=== PATIENT | male | born 1945 | race Caucasian/White ===

== ENCOUNTER 2018-04-16 09:37 | Inpatient (IN) | payer MEDICARE, BC ==
[~2018-04-16] VITALS: Ht 177.8 cm; Wt 104.5 kg
[2018-04-16] VITALS (15 sets, daily range): BP systolic 84–213; BP diastolic 33–130
[2018-04-16] MEDS ORDERED: diphenhydrAMINE 25mg capsule PO PRN (10:05)
[2018-04-16] MEDS ORDERED: LIDOcaine 1% w/EPI 1:200,000 10 ML, BUPIVAcaine 2.5mg/ml /PF 25 MG SQ ONE ×2 (10:05)
[2018-04-16] MEDS ORDERED: LORazepam 0.5 MG tablet PO PRN (10:05)
[2018-04-16] MEDS: normal saline 1000ml 1,000 ML IV SCH ×2 (10:05→20:05)
[2018-04-16] MEDS ORDERED: NITR0.4T51 SL (10:33)
[2018-04-16] MEDS ORDERED: LEVO50TA PO (10:33)
[2018-04-16] MEDS ORDERED: ENOX40SY7 SQ (10:33)
[2018-04-16] MEDS ORDERED: RIVA20TA PO (10:33)
[2018-04-16] MEDS ORDERED: ATOR10TA PO (10:33)
[2018-04-16] MEDS ORDERED: LISI10TA4 PO (10:33)
[2018-04-16] MEDS ORDERED: CARSR60C PO (10:33)
[2018-04-16] MEDS ORDERED: LIDOcaine/PRILOcaine 5gm cream TP ONE (11:10)
[2018-04-16] MEDS ORDERED: fentaNYL/PF 50MCG/1 ML 2ML syringe ONE (11:56)
[2018-04-16] MEDS ORDERED: LIDOcaine 1% 30ml preserv. free vial ONE (11:56)
[2018-04-16] MEDS ORDERED: iohexol 350MG/ML 100ml bottle IV ONE ×2 (11:56→13:00)
[2018-04-16] MEDS ORDERED: midazolam 2 mg/2 ml injection ONE (11:56)
[2018-04-16] MEDS ORDERED: verapamil 2.5 mg/ml inj IV ONE (12:27)
[2018-04-16] MEDS ORDERED: nitroGLYCERIN-Tridil 50MG/D5W 250 ML IV ONE (12:27)
[2018-04-16] MEDS ORDERED: heparin 1,000unit/ml 10ml vial 10 ML ONE (12:28)
[2018-04-16] MEDS ORDERED: proCHLORperazine 10 MG/2 ml inj IV PRN (13:50)
[2018-04-16] MEDS ORDERED: HYDROcodone/acetaminophen 5mg/325mg tablet PO PRN (13:50)
[2018-04-16] MEDS ORDERED: OXAZEpam 15mg capsule PO PRN (13:50)
[2018-04-16] MEDS ORDERED: HYDROcodone/acetaminophen 10/325mg tab PO PRN (13:50)
[2018-04-16] MEDS ORDERED: ondansetron/PF 4mg/2ml inj IV PRN (13:50)
[2018-04-16] MEDS ORDERED: MESSAGE TO NURSING PO ONE ×4 (18:00)
[2018-04-16] MEDS ORDERED: dextrose 50%-water 50ml dispensing syringe IV PRN ×3 (18:00→18:10)
[2018-04-16] MEDS ORDERED: insulin Lispro (HumaLOG) vial - multi-dose SQ SCH ×2 (18:00→18:10)
[2018-04-16] MEDS ORDERED: nitroGLYCERIN 0.4mg SUBLingual tab SL PRN ×2 (18:05→20:05)
[2018-04-16] MEDS ORDERED: glucagon, human recombinant 1mg kit SUBCUT PRN (18:10)
[2018-04-16] MEDS ORDERED: MESSAGE TO PHARMACY PO ONE (18:10)
[2018-04-16] MEDS ORDERED: dextrose ORAL solution 15 GM/59 ML bottle PO PRN ×2 (18:10)
[2018-04-16 18:48] LABS: HEMATOCRIT 43.6 % (42.0-52.0); HEMOGLOBIN 15.2 g/dl (14.0-17.9); MEAN CORPUSCULAR HEMOGLOBIN 30.6 PG (27.0-31.0); MEAN CORPUSCULAR HGB CONC 34.8 % (33.0-36.5); MEAN CORPUSCULAR VOLUME 87.8 FL (78-98); MEAN PLATELET VOLUME 9.3 FL (7.4-10.4); PLATELET COUNT 149 X10'3 (140-440); RED BLOOD COUNT 4.97 X10'6 (4.70-6.10); RED CELL DISTRIBUTION WIDTH 13.4 % (11.5-14.5); WHITE BLOOD COUNT 6.8 X10'3 (4.5-11.0)
[2018-04-16 19:03] LABS: ALBUMIN 3.3 G/DL (3.4-5.0); ANION GAP 9 (8-16); BLOOD UREA NITROGEN 17 MG/DL (7-18); BUN/CREATININE RATIO 17.9 (5.4-32.0); CALCIUM 8.4 MG/DL (8.5-10.1); CHLORIDE 106 MMOL/L (99-107); CREATININE 0.95 MG/DL (0.60-1.10); GLUCOSE 131 MG/DL (70-104); POTASSIUM 3.9 MMOL/L (3.5-5.1); SODIUM 143 MMOL/L (135-145); TOTAL CARBON DIOXIDE 27.7 MMOL/L (24-32); eGFR 78 ML/MIN
[2018-04-16 19:06] LABS: HEMOGLOBIN A1C 4.7 % (4.5-6.2); INR 1.3 INR; PARTIAL THROMBOPLASTIN TIME 28 SECONDS (22-32); PROTHROMBIN TIME 13.4 SECONDS (9.0-12.0)
[2018-04-16] MEDS: nitroGLYCERIN 0.4mg SUBLingual tab SL PRN ×3 (19:22→19:32)
[2018-04-16] MEDS: mupirocin 2% nasal ointment 1gm UD NS SCH (20:00)
[2018-04-16] MEDS: diltiazem CD 180mg cap (once-daily) PO SCH (20:32)
[2018-04-16] MEDS: lisinopril 20mg tablet PO SCH (20:33)
[2018-04-16] MEDS ORDERED: insulin glargine (Lantus) pen - multi-dose SQ SCH (21:00)
[2018-04-17 03:00] VITALS: BP 130/74
[2018-04-17 06:00] VITALS: BP 118/79
[2018-04-17] MEDS: mupirocin 2% nasal ointment 1gm UD NS SCH (06:30)
[2018-04-17] MEDS ORDERED: levoTHYROXINE 25mcg tablet PO SCH (07:00)
[2018-04-17 07:27] LABS: ALANINE AMINOTRANSFERASE 42 U/L (12-78); ALBUMIN/GLOBULIN RATIO 0.9 (1.1-1.5); ALKALINE PHOSPHATASE 77 IU/L (46-116); ANION GAP 8 (8-16); ASPARTATE AMINO TRANSFERASE 35 U/L (10-37); BILIRUBIN,TOTAL 0.7 MG/DL (0.1-1.0); BLOOD UREA NITROGEN 16 MG/DL (7-18); BUN/CREATININE RATIO 18.4 (5.4-32.0); CHLORIDE 106 MMOL/L (99-107); CHOL/HDL RATIO 3.7 (0.00-4.99); CHOLESTEROL 129 MG/DL (0-200); CREATININE 0.87 MG/DL (0.60-1.10); GLUCOSE 126 MG/DL (70-104); HDL CHOLESTEROL 35 MG/DL (35-60); LDL CHOLESTEROL 83 MG/DL (50-100); POTASSIUM 3.8 MMOL/L (3.5-5.1); SODIUM 141 MMOL/L (135-145); TOTAL CARBON DIOXIDE 27.3 MMOL/L (24-32); TOTAL PROTEIN 6.3 G/DL (6.4-8.2); TRIGLYCERIDES 95 MG/DL (20-135); eGFR 86 ML/MIN
[2018-04-17] MEDS ORDERED: rivaroxaban 20mg tablet PO SCH (07:30)
[2018-04-17] MEDS ORDERED: atorvastatin 10mg tablet PO SCH ×2 (08:00)
[2018-04-17] MEDS ORDERED: lisinopril 20mg tablet PO SCH ×2 (08:00)
[2018-04-17] MEDS ORDERED: diltiazem CD 180mg cap (once-daily) PO SCH ×2 (08:00)
[2018-04-17] MEDS: diltiazem CD 180mg cap (once-daily) PO SCH (09:18)
[2018-04-17] MEDS: lisinopril 20mg tablet PO SCH (09:19)
[2018-04-17] MEDS ORDERED: MESSAGE TO NURSING PO ONE (10:00)
[2018-04-17 10:06] LABS: ABG OXYGEN SATURATION 92.8 % (95-98); ABG PCO2 (T) 37.9 mmHg (35.0-48.0); ABG PH (T) 7.437 (7.350-7.450); ABG PO2 (T) 64.7 mmHg (83-108); ALLEN'S TEST Positive; FCOHb 1.5 % (0.5-1.5); FO2Hb 91.4 % (94-100); TOTAL HEMOGLOBIN 14.8 G/dl (14.0-18.0)
[2018-04-17 11:00] VITALS: BP 126/79
[2018-04-17] MEDS: levoTHYROXINE 25mcg tablet PO SCH (12:07)
[2018-04-17 15:00] VITALS: BP 118/72
[2018-04-17] MEDS: normal saline 1000ml 1,000 ML IV SCH (15:31)
[2018-04-17 19:00] VITALS: BP 126/72
[2018-04-17 23:00] VITALS: BP 128/81
[2018-04-18] VITALS (18 sets, daily range): BP systolic 108–159; BP diastolic 60–80
[2018-04-18 05:24] LABS: BASOPHILS % (AUTO) 0.6 % (0-1); EOSINOPHILS # (AUTO) 0.1 X10'3 (0-0.9); HEMATOCRIT 39.6 % (42.0-52.0); HEMOGLOBIN 13.5 g/dl (14.0-17.9); LYMPHOCYTES # (AUTO) 1.9 X10'3 (1.1-4.8); LYMPHOCYTES % (AUTO) 27.8 % (21-51); MEAN CORPUSCULAR HEMOGLOBIN 30.5 PG (27.0-31.0); MEAN CORPUSCULAR HGB CONC 34.2 % (33.0-36.5); MEAN CORPUSCULAR VOLUME 89.2 FL (78-98); MEAN PLATELET VOLUME 9.6 FL (7.4-10.4); MONOCYTES # (AUTO) 0.4 X10'3 (0-0.9); MONOCYTES % (AUTO) 6.7 % (2-12); NEUTROPHILS # (AUTO) 4.2 X10'3 (1.8-7.7); NEUTROPHILS % (AUTO) 62.9 % (42-75); PLATELET COUNT 133 X10'3 (140-440); RED BLOOD COUNT 4.44 X10'6 (4.70-6.10); RED CELL DISTRIBUTION WIDTH 13.6 % (11.5-14.5); WHITE BLOOD COUNT 6.7 X10'3 (4.5-11.0)
[2018-04-18] MEDS ORDERED: vancomycin/NS 1 GM ADD-VANTAGE 250 ML IV ONE (05:30)
[2018-04-18] MEDS ORDERED: cefazolin/dext.iso 2gm/100ml 100 ML IV ONE (05:30)
[2018-04-18 05:36] LABS: ALBUMIN 2.9 G/DL (3.4-5.0); ANION GAP 7 (8-16); BLOOD UREA NITROGEN 16 MG/DL (7-18); BUN/CREATININE RATIO 15.8 (5.4-32.0); CALCIUM 7.9 MG/DL (8.5-10.1); CHLORIDE 107 MMOL/L (99-107); CREATININE 1.01 MG/DL (0.60-1.10); GLUCOSE 100 MG/DL (70-104); POTASSIUM 3.8 MMOL/L (3.5-5.1); SODIUM 142 MMOL/L (135-145); TOTAL CARBON DIOXIDE 28.4 MMOL/L (24-32); eGFR 73 ML/MIN
[2018-04-18 05:39] LABS: INR 1.4 INR; PROTHROMBIN TIME 13.7 SECONDS (9.0-12.0)
[2018-04-18] MEDS ORDERED: famotidine 20mg tablet PO ONE (06:00)
[2018-04-18] MEDS ORDERED: LORazepam 2 mg/ml vial IV ONE (06:00)
[2018-04-18] MEDS ORDERED: sevoflurane 250ml liquid IH ONE (06:37)
[2018-04-18] MEDS ORDERED: aminocaproic acid 250 MG/1 ML inj. ONE (06:37)
[2018-04-18] MEDS ORDERED: nitroGLYCERIN in D5W 50mg/250ml (Tridil) infusion IV ONE (06:37)
[2018-04-18] MEDS ORDERED: DOPamine/D5W 400mg/250ml bag IV ONE (06:37)
[2018-04-18] MEDS ORDERED: amiodarone 50MG/ML inj IV ONE (06:37)
[2018-04-18] MEDS ORDERED: MIDAZolam 1mg/ml 10ml vial ONE (06:41)
[2018-04-18] MEDS ORDERED: SUFENTANIL CITRATE 50 MCG/ML 2ml ampule IV ONE (06:41)
[2018-04-18] MEDS ORDERED: propofol inj 20 ML IV ONE ×2 (06:50→09:54)
[2018-04-18 07:36] LABS: ABG BASE EXCESS 0.1 mmol/L (-2.0-3.0); ABG HCO3 26.2 mmol/L (22.0-26.0); ABG OXYGEN SATURATION 98.3 % (95-98); ABG PCO2 48.6 mmHg (35.0-45.0); ABG PO2 136.6 mmHg (60.0-100.0); CL (ABG) 107 mmol/L (99-107); FCOHb 1.3 % (0.5-1.5); FMetHb 0.1 % (0.3-1.12); FO2Hb 96.9 % (94-100); GLUCOSE (ABG) 123 mg/dl (70-105); IONIZED CA (ABG) 1.15 mmol/L (1.03-1.32); K (ABG) 3.9 mmol/L (3.3-5.1); NA (ABG) 137 mmol/L (135-145); TOTAL HEMOGLOBIN 13.7 G/dl (14.0-18.0)
[2018-04-18] MEDS ORDERED: papaverine 30 mg/ml 2ml inj. IA ONE (08:08)
[2018-04-18 08:20] LABS: ABG BASE EXCESS VENOUS 1.9 mmol/L; ABG HCO3 VENOUS 29.2 mmol/L; ABG PCO2 VENOUS 57.5 mmHg; ABG PO2 VENOUS 35.2 mmHg; CL (ABG) 107 mmol/L (99-107); FCOHb VENOUS 1.5 %; FHHb VENOUS 33.3 %; FMetHb VENOUS 0.2 %; GLUCOSE (ABG) 130 mg/dl (70-105); IONIZED CA (ABG) 1.12 mmol/L (1.03-1.32); K (ABG) 3.9 mmol/L (3.3-5.1); NA (ABG) 136 mmol/L (135-145); TOTAL HEMOGLOBIN 13.7 G/dl (14.0-18.0)
[2018-04-18] MEDS ORDERED: insulin Lispro (HumaLOG) vial - multi-dose SQ SCH (09:00)
[2018-04-18] MEDS ORDERED: albumin (Human) 5% 250ml 250 ML IV ONE (09:54)
[2018-04-18] MEDS ORDERED: rocuronium 10mg/ml inj IV ONE ×3 (09:55)
[2018-04-18 09:56] LABS: ABG BASE EXCESS VENOUS 0.7 mmol/L; ABG HCO3 VENOUS 27.5 mmol/L; ABG PCO2 VENOUS 53.1 mmHg; ABG PO2 VENOUS 39.2 mmHg; CL (ABG) 111 mmol/L (99-107); FCOHb VENOUS 1.4 %; FHHb VENOUS 27.7 %; FMetHb VENOUS 0.3 %; FO2Hb VENOUS 70.6 %; GLUCOSE (ABG) 140 mg/dl (70-105); IONIZED CA (ABG) 1.14 mmol/L (1.03-1.32); K (ABG) 3.8 mmol/L (3.3-5.1); NA (ABG) 136 mmol/L (135-145); TOTAL HEMOGLOBIN 13.2 G/dl (14.0-18.0)
[2018-04-18 10:26] LABS: ACTIVATED CLOTTING TIME 131 SEC (101-148)
[2018-04-18 10:26] LABS: ACT @ 1.70 U 292 SEC (193-297); ACT @ 2.84 U 394 SEC (260-420); BASELINE ACT 154 SEC (101-148)
[2018-04-18] MEDS ORDERED: niCARDipine-NS 40mg/200ml IVPB 200 ML IV PRN (10:47)
[2018-04-18] MEDS ORDERED: DOPamine 400mg/D5W 250ml 250 ML IV PRN (10:47)
[2018-04-18] MEDS ORDERED: nitroGLYCERIN-Tridil 50MG/D5W 250 ML IV PRN (10:47)
[2018-04-18] MEDS ORDERED: Neutra Phos packet PO PRN (10:50)
[2018-04-18] MEDS ORDERED: magnesium 4gm in 100ml NS 100 ML IV PRN (10:50)
[2018-04-18] MEDS ORDERED: metoclopramide 5 mg/ml inj IV PRN (10:50)
[2018-04-18] MEDS ORDERED: sodium phosphate inj. 30 MMOL in dextrose 5%-water 250 ML IV PRN (10:50)
[2018-04-18] MEDS ORDERED: potassium Cl 20mEq/100mL bag 100 ML IV PRN (10:50)
[2018-04-18] MEDS ORDERED: dextrose 50%-water 50ml dispensing syringe IV PRN (10:50)
[2018-04-18] MEDS ORDERED: ondansetron/PF 4mg/2ml inj IV PRN (10:50)
[2018-04-18] MEDS ORDERED: acetaminophen 325mg tablet PO PRN (10:50)
[2018-04-18] MEDS ORDERED: pantoprazole 40 MG vial IV ONE (10:50)
[2018-04-18] MEDS ORDERED: insulin regular, human inj. 100 UNITS in normal saline 100ml IV soln 100 ML IV SCH ×2 (10:50)
[2018-04-18] MEDS ORDERED: sodium phosphate inj. 15 MMOL in dextrose 5%-water 150 ML IV PRN (10:50)
[2018-04-18] MEDS ORDERED: normal saline 250ml IV soln 250 ML IV PRN (10:50)
[2018-04-18] MEDS ORDERED: magnesium hydroxide 30ml (MOM) UD suspension PO PRN (10:50)
[2018-04-18 11:11] LABS: BASOPHILS % (AUTO) 0.3 % (0-1); EOSINOPHILS # (AUTO) 0.2 X10'3 (0-0.9); EOSINOPHILS % (AUTO) 2.3 % (0-6); HEMATOCRIT 35.4 % (42.0-52.0); HEMOGLOBIN 12.2 g/dl (14.0-17.9); LYMPHOCYTES # (AUTO) 1.1 X10'3 (1.1-4.8); LYMPHOCYTES % (AUTO) 12.5 % (21-51); MEAN CORPUSCULAR HEMOGLOBIN 30.4 PG (27.0-31.0); MEAN CORPUSCULAR HGB CONC 34.5 % (33.0-36.5); MEAN CORPUSCULAR VOLUME 88.3 FL (78-98); MEAN PLATELET VOLUME 8.4 FL (7.4-10.4); MONOCYTES # (AUTO) 0.5 X10'3 (0-0.9); MONOCYTES % (AUTO) 5.2 % (2-12); NEUTROPHILS # (AUTO) 7.3 X10'3 (1.8-7.7); NEUTROPHILS % (AUTO) 79.7 % (42-75); PLATELET COUNT 124 X10'3 (140-440); RED BLOOD COUNT 4.01 X10'6 (4.70-6.10); RED CELL DISTRIBUTION WIDTH 13.6 % (11.5-14.5); WHITE BLOOD COUNT 9.1 X10'3 (4.5-11.0)
[2018-04-18] MEDS: albumin (Human) 5% 250ml 250 ML IV PRN ×2 (11:21→16:51)
[2018-04-18] MEDS: sodium chloride 0.45% 1,000 ML IV SCH (11:23)
[2018-04-18 11:26] LABS: ABG HCO3 22.6 mmol/L (22.0-26.0); ABG OXYGEN SATURATION 94.3 % (95-98); ABG PCO2 (T) 38.6 mmHg (35.0-48.0); ABG PH (T) 7.376 (7.350-7.450); ABG PO2 (T) 66.8 mmHg (83-108); FCOHb 0.6 % (0.5-1.5); FLOW 35 L/min; FMetHb 0.2 % (0.3-1.12); FO2Hb 93.5 % (94-100); MINUTE VOLUME 7 L/min; PEEP 5 cm H2O; RESPIRATORY RATE 12 b/min; RESPIRATORY RATE (OBSERVED) 12 b/min; TIDAL VOLUME 550 mL
[2018-04-18 11:27] LABS: ALANINE AMINOTRANSFERASE 81 U/L (12-78); ALBUMIN 2.6 G/DL (3.4-5.0); ALKALINE PHOSPHATASE 66 IU/L (46-116); ANION GAP 8 (8-16); ASPARTATE AMINO TRANSFERASE 52 U/L (10-37); BILIRUBIN,TOTAL 0.8 MG/DL (0.1-1.0); BLOOD UREA NITROGEN 14 MG/DL (7-18); BUN/CREATININE RATIO 15.1 (5.4-32.0); CALCIUM 7.7 MG/DL (8.5-10.1); CHLORIDE 109 MMOL/L (99-107); CREATININE 0.93 MG/DL (0.60-1.10); GLUCOSE 133 MG/DL (70-104); MAGNESIUM 1.7 MG/DL (1.5-2.4); PHOSPHORUS 3.6 MG/DL (2.3-4.5); POTASSIUM 3.7 MMOL/L (3.5-5.1); SODIUM 143 MMOL/L (135-145); TOTAL CARBON DIOXIDE 26.1 MMOL/L (24-32); TOTAL PROTEIN 5.2 G/DL (6.4-8.2); eGFR 80 ML/MIN
[2018-04-18] MEDS: morphine 4 MG/ML inj SYRINge IV PRN ×4 (11:31→21:38)
[2018-04-18] MEDS: potassium Cl 20mEq/100mL bag 100 ML IV PRN ×4 (11:38→17:47)
[2018-04-18 11:41] LABS: INR 1.6 INR; PARTIAL THROMBOPLASTIN TIME 30 SECONDS (22-32); PROTHROMBIN TIME 15.7 SECONDS (9.0-12.0)
[2018-04-18] MEDS: NORMAL SALINE IV SCH ×2 (12:10)
[2018-04-18] MEDS: HUMAN IV SCH ×2 (12:10)
[2018-04-18] MEDS: INSULIN REGULAR IV SCH ×2 (12:10)
[2018-04-18] MEDS: levoTHYROXINE 25mcg tablet PO SCH (12:12)
[2018-04-18] MEDS: insulin Lispro (HumaLOG) vial - multi-dose SQ SCH ×2 (13:00→18:00)
[2018-04-18 15:01] LABS: ABG BASE EXCESS -4.3 mmol/L (-2.0-3.0); ABG HCO3 20.2 mmol/L (22.0-26.0); ABG OXYGEN SATURATION 94.8 % (95-98); ABG PCO2 (T) 35.2 mmHg (35.0-48.0); ABG PH (T) 7.376 (7.350-7.450); ABG PO2 (T) 77.8 mmHg (83-108); FCOHb 0.6 % (0.5-1.5); FMetHb 0.1 % (0.3-1.12); FO2Hb 94.1 % (94-100); MINUTE VOLUME 9 L/min; PEEP 5 cm H2O; RESPIRATORY RATE (OBSERVED) 12 b/min
[2018-04-18] MEDS: ceFAZolin 1GM/D5W- ADD-VANTAGE 50 ML IV SCH (16:40)
[2018-04-18 17:07] LABS: BASOPHILS % (AUTO) 0 % (0-1); EOSINOPHILS % (AUTO) 0 % (0-6); HEMATOCRIT 33.4 % (42.0-52.0); HEMOGLOBIN 11.5 g/dl (14.0-17.9); LYMPHOCYTES # (AUTO) 0.3 X10'3 (1.1-4.8); MEAN CORPUSCULAR HEMOGLOBIN 30.5 PG (27.0-31.0); MEAN CORPUSCULAR HGB CONC 34.4 % (33.0-36.5); MEAN CORPUSCULAR VOLUME 88.5 FL (78-98); MEAN PLATELET VOLUME 8.7 FL (7.4-10.4); MONOCYTES # (AUTO) 0.5 X10'3 (0-0.9); MONOCYTES % (AUTO) 3.3 % (2-12); NEUTROPHILS % (AUTO) 94.7 % (42-75); PLATELET COUNT 134 X10'3 (140-440); RED BLOOD COUNT 3.78 X10'6 (4.70-6.10); RED CELL DISTRIBUTION WIDTH 13.4 % (11.5-14.5); WHITE BLOOD COUNT 13.8 X10'3 (4.5-11.0)
[2018-04-18 17:25] LABS: ALBUMIN 2.9 G/DL (3.4-5.0); ANION GAP 8 (8-16); BLOOD UREA NITROGEN 13 MG/DL (7-18); CALCIUM 7.7 MG/DL (8.5-10.1); CHLORIDE 109 MMOL/L (99-107); CREATININE 0.93 MG/DL (0.60-1.10); GLUCOSE 145 MG/DL (70-104); MAGNESIUM 1.6 MG/DL (1.5-2.4); PHOSPHORUS 3.6 MG/DL (2.3-4.5); POTASSIUM 4.2 MMOL/L (3.5-5.1); SODIUM 143 MMOL/L (135-145); eGFR 80 ML/MIN
[2018-04-18] MEDS: docusate sod 100mg capsule PO SCH (20:00)
[2018-04-18] MEDS: vancomycin/NS 1 GM ADD-VANTAGE 250 ML IV SCH (20:04)
[2018-04-18] MEDS: mupirocin 2% nasal ointment 1gm UD NS SCH (20:04)
[2018-04-18] MEDS: magnesium 1gm/100ml D5W IVPB 100 ML IV PRN ×2 (20:22→21:41)
[2018-04-19] VITALS (24 sets, daily range): BP systolic 93–154; BP diastolic 48–76
[2018-04-19] MEDS: ceFAZolin 1GM/D5W- ADD-VANTAGE 50 ML IV SCH ×3 (00:21→15:54)
[2018-04-19] MEDS: morphine 4 MG/ML inj SYRINge IV PRN ×4 (01:00→07:17)
[2018-04-19 03:26] LABS: BASOPHILS % (AUTO) 0 % (0-1); EOSINOPHILS # (AUTO) 0.2 X10'3 (0-0.9); EOSINOPHILS % (AUTO) 1.6 % (0-6); HEMATOCRIT 30.9 % (42.0-52.0); HEMOGLOBIN 10.6 g/dl (14.0-17.9); LYMPHOCYTES # (AUTO) 0.7 X10'3 (1.1-4.8); LYMPHOCYTES % (AUTO) 6.1 % (21-51); MEAN CORPUSCULAR HEMOGLOBIN 30.3 PG (27.0-31.0); MEAN CORPUSCULAR HGB CONC 34.2 % (33.0-36.5); MEAN CORPUSCULAR VOLUME 88.6 FL (78-98); MEAN PLATELET VOLUME 9.5 FL (7.4-10.4); MONOCYTES # (AUTO) 0.6 X10'3 (0-0.9); MONOCYTES % (AUTO) 5.7 % (2-12); NEUTROPHILS # (AUTO) 9.3 X10'3 (1.8-7.7); NEUTROPHILS % (AUTO) 86.6 % (42-75); PLATELET COUNT 141 X10'3 (140-440); RED BLOOD COUNT 3.49 X10'6 (4.70-6.10); RED CELL DISTRIBUTION WIDTH 13.1 % (11.5-14.5); WHITE BLOOD COUNT 10.8 X10'3 (4.5-11.0)
[2018-04-19 03:43] LABS: INR 1.5 INR; PARTIAL THROMBOPLASTIN TIME 28 SECONDS (22-32); PROTHROMBIN TIME 14.7 SECONDS (9.0-12.0)
[2018-04-19 04:28] LABS: ALANINE AMINOTRANSFERASE 67 U/L (12-78); ALBUMIN 2.8 G/DL (3.4-5.0); ALBUMIN/GLOBULIN RATIO 1.1 (1.1-1.5); ALKALINE PHOSPHATASE 57 IU/L (46-116); ANION GAP 12 (8-16); ASPARTATE AMINO TRANSFERASE 39 U/L (10-37); BILIRUBIN,TOTAL 0.8 MG/DL (0.1-1.0); BLOOD UREA NITROGEN 15 MG/DL (7-18); BUN/CREATININE RATIO 15.8 (5.4-32.0); CALCIUM 7.4 MG/DL (8.5-10.1); CHLORIDE 107 MMOL/L (99-107); CREATININE 0.95 MG/DL (0.60-1.10); GLUCOSE 127 MG/DL (70-104); MAGNESIUM 2.7 MG/DL (1.5-2.4); PHOSPHORUS 3.6 MG/DL (2.3-4.5); POTASSIUM 4.1 MMOL/L (3.5-5.1); SODIUM 143 MMOL/L (135-145); TOTAL CARBON DIOXIDE 24.1 MMOL/L (24-32); TOTAL PROTEIN 5.3 G/DL (6.4-8.2); eGFR 78 ML/MIN
[2018-04-19] MEDS: levoTHYROXINE 25mcg tablet PO SCH (07:20)
[2018-04-19] MEDS: docusate sod 100mg capsule PO SCH ×2 (07:20→19:30)
[2018-04-19] MEDS: aspirin 325mg tablet, delayed-release (Ecotrin) PO SCH (07:21)
[2018-04-19] MEDS: atorvastatin 10mg tablet PO SCH (07:21)
[2018-04-19] MEDS: mupirocin 2% nasal ointment 1gm UD NS SCH ×2 (07:21→19:27)
[2018-04-19] MEDS ORDERED: metoprolol tartrate 12.5mg (1/2 tablet) PO SCH (08:00)
[2018-04-19] MEDS: vancomycin/NS 1 GM ADD-VANTAGE 250 ML IV SCH ×2 (08:03→19:35)
[2018-04-19] MEDS: insulin Lispro (HumaLOG) vial - multi-dose SQ SCH (09:00)
[2018-04-19] MEDS: lisinopril 5mg tablet PO SCH (09:52)
[2018-04-19] MEDS: ketorolac tromethamine 15mg/ml inj. IV SCH ×3 (09:52→22:37)
[2018-04-19] MEDS: HUMAN IV SCH ×2 (10:09)
[2018-04-19] MEDS: INSULIN REGULAR IV SCH ×2 (10:09)
[2018-04-19] MEDS: NORMAL SALINE IV SCH ×2 (10:09)
[2018-04-19] MEDS: metoprolol tartrate 12.5mg (1/2 tablet) PO SCH ×2 (10:10→19:29)
[2018-04-19] MEDS ORDERED: glucagon, human recombinant 1mg kit SUBCUT PRN (10:15)
[2018-04-19] MEDS ORDERED: dextrose 50%-water 50ml dispensing syringe IV PRN ×2 (10:15)
[2018-04-19] MEDS ORDERED: MESSAGE TO PHARMACY PO ONE (10:15)
[2018-04-19] MEDS ORDERED: dextrose ORAL solution 15 GM/59 ML bottle PO PRN ×2 (10:15)
[2018-04-19] MEDS ORDERED: insulin Lispro (HumaLOG) vial - multi-dose SQ SCH (10:15)
[2018-04-19] MEDS: potassium Cl 20mEq/100mL bag 100 ML IV PRN (11:02)
[2018-04-19] MEDS: HYDROcodone/acetaminophen 10/325mg tab PO PRN ×2 (12:42→19:27)
[2018-04-19] MEDS ORDERED: ketorolac tromethamine 15mg/ml inj. IV SCH (14:00)
[2018-04-19] MEDS: lactobacillus rhamnosus 10,000 MMU CELLS/CAPSULE PO SCH (19:30)
[2018-04-19] MEDS: insulin glargine (Lantus) pen - multi-dose SQ SCH (21:00)
[2018-04-20] VITALS (19 sets, daily range): BP systolic 100–144; BP diastolic 49–77
[2018-04-20] MEDS: ceFAZolin 1GM/D5W- ADD-VANTAGE 50 ML IV SCH
[2018-04-20] MEDS: ketorolac tromethamine 15mg/ml inj. IV SCH (02:00)
[2018-04-20 03:08] LABS: BASOPHILS % (AUTO) 0.2 % (0-1); EOSINOPHILS # (AUTO) 0.1 X10'3 (0-0.9); EOSINOPHILS % (AUTO) 0.7 % (0-6); HEMOGLOBIN 10.3 g/dl (14.0-17.9); LYMPHOCYTES # (AUTO) 1.3 X10'3 (1.1-4.8); MEAN CORPUSCULAR HEMOGLOBIN 30.6 PG (27.0-31.0); MEAN CORPUSCULAR HGB CONC 34.4 % (33.0-36.5); MEAN PLATELET VOLUME 9.6 FL (7.4-10.4); MONOCYTES # (AUTO) 0.8 X10'3 (0-0.9); MONOCYTES % (AUTO) 7.6 % (2-12); NEUTROPHILS # (AUTO) 7.8 X10'3 (1.8-7.7); NEUTROPHILS % (AUTO) 78.5 % (42-75); PLATELET COUNT 113 X10'3 (140-440); RED BLOOD COUNT 3.37 X10'6 (4.70-6.10); RED CELL DISTRIBUTION WIDTH 13.5 % (11.5-14.5); WHITE BLOOD COUNT 9.9 X10'3 (4.5-11.0)
[2018-04-20 03:09] LABS: ALBUMIN 2.6 G/DL (3.4-5.0); ANION GAP 8 (8-16); BLOOD UREA NITROGEN 22 MG/DL (7-18); BUN/CREATININE RATIO 21.4 (5.4-32.0); CALCIUM 7.7 MG/DL (8.5-10.1); CHLORIDE 106 MMOL/L (99-107); CREATININE 1.03 MG/DL (0.60-1.10); GLUCOSE 106 MG/DL (70-104); MAGNESIUM 2.3 MG/DL (1.5-2.4); PHOSPHORUS 2.9 MG/DL (2.3-4.5); POTASSIUM 4.2 MMOL/L (3.5-5.1); SODIUM 141 MMOL/L (135-145); eGFR 71 ML/MIN
[2018-04-20] MEDS: HYDROcodone/acetaminophen 10/325mg tab PO PRN ×4 (03:49→17:11)
[2018-04-20] MEDS ORDERED: ketorolac trometh. 30mg/ml inj. IV ONE (05:10)
[2018-04-20] MEDS: morphine 4 MG/ML inj SYRINge IV PRN (07:46)
[2018-04-20] MEDS: metoprolol tartrate 12.5mg (1/2 tablet) PO SCH ×2 (07:56→19:57)
[2018-04-20] MEDS: atorvastatin 10mg tablet PO SCH (07:56)
[2018-04-20] MEDS: levoTHYROXINE 25mcg tablet PO SCH (07:56)
[2018-04-20] MEDS: docusate sod 100mg capsule PO SCH ×2 (07:56→19:57)
[2018-04-20] MEDS: lactobacillus rhamnosus 10,000 MMU CELLS/CAPSULE PO SCH ×2 (07:56→19:56)
[2018-04-20] MEDS: mupirocin 2% nasal ointment 1gm UD NS SCH (07:57)
[2018-04-20] MEDS: aspirin 325mg tablet, delayed-release (Ecotrin) PO SCH (07:57)
[2018-04-20] MEDS: lisinopril 5mg tablet PO SCH (08:00)
[2018-04-20] MEDS ORDERED: lisinopril 5mg tablet PO SCH (08:00)
[2018-04-20] MEDS: pantoprazole 40mg Tablet.DR PO SCH (08:00)
[2018-04-20] MEDS ORDERED: magnesium citrate 296ml oral solution PO ONE (08:25)
[2018-04-20] MEDS: sodium chloride 0.45% 1,000 ML IV SCH (10:47)
[2018-04-20] MEDS: tamsulosin 0.4mg capsule PO SCH (19:56)
[2018-04-20] MEDS: insulin glargine (Lantus) pen - multi-dose SQ SCH (21:00)
[2018-04-21] VITALS (21 sets, daily range): BP systolic 103–152; BP diastolic 59–96
[2018-04-21] MEDS: HYDROcodone/acetaminophen 10/325mg tab PO PRN ×3 (00:48→19:41)
[2018-04-21 06:16] LABS: BASOPHILS % (AUTO) 0.2 % (0-1); EOSINOPHILS # (AUTO) 0.2 X10'3 (0-0.9); EOSINOPHILS % (AUTO) 1.9 % (0-6); HEMATOCRIT 29.9 % (42.0-52.0); HEMOGLOBIN 10.2 g/dl (14.0-17.9); LYMPHOCYTES # (AUTO) 1.1 X10'3 (1.1-4.8); LYMPHOCYTES % (AUTO) 11.4 % (21-51); MEAN CORPUSCULAR HEMOGLOBIN 30.2 PG (27.0-31.0); MEAN CORPUSCULAR VOLUME 88.8 FL (78-98); MEAN PLATELET VOLUME 9.5 FL (7.4-10.4); MONOCYTES # (AUTO) 0.6 X10'3 (0-0.9); MONOCYTES % (AUTO) 6.5 % (2-12); NEUTROPHILS # (AUTO) 7.8 X10'3 (1.8-7.7); PLATELET COUNT 138 X10'3 (140-440); RED BLOOD COUNT 3.37 X10'6 (4.70-6.10); RED CELL DISTRIBUTION WIDTH 13.7 % (11.5-14.5); WHITE BLOOD COUNT 9.8 X10'3 (4.5-11.0)
[2018-04-21 06:44] LABS: ALBUMIN 2.6 G/DL (3.4-5.0); ANION GAP 8 (8-16); BLOOD UREA NITROGEN 23 MG/DL (7-18); BUN/CREATININE RATIO 22.8 (5.4-32.0); CALCIUM 8.1 MG/DL (8.5-10.1); CHLORIDE 103 MMOL/L (99-107); CREATININE 1.01 MG/DL (0.60-1.10); GLUCOSE 117 MG/DL (70-104); MAGNESIUM 2.6 MG/DL (1.5-2.4); PHOSPHORUS 2.7 MG/DL (2.3-4.5); POTASSIUM 4.6 MMOL/L (3.5-5.1); SODIUM 139 MMOL/L (135-145); eGFR 73 ML/MIN
[2018-04-21] MEDS: pantoprazole 40mg Tablet.DR PO SCH (07:30)
[2018-04-21] MEDS: levoTHYROXINE 25mcg tablet PO SCH (08:00)
[2018-04-21] MEDS: aspirin 325mg tablet, delayed-release (Ecotrin) PO SCH (08:00)
[2018-04-21] MEDS: tamsulosin 0.4mg capsule PO SCH (08:00)
[2018-04-21] MEDS: atorvastatin 10mg tablet PO SCH (08:00)
[2018-04-21] MEDS: lisinopril 5mg tablet PO SCH (08:00)
[2018-04-21] MEDS: lactobacillus rhamnosus 10,000 MMU CELLS/CAPSULE PO SCH (19:52)
[2018-04-21] MEDS: metoprolol tartrate 12.5mg (1/2 tablet) PO SCH (19:52)
[2018-04-21] MEDS: docusate sod 100mg capsule PO SCH (20:00)
[2018-04-21] MEDS: insulin glargine (Lantus) pen - multi-dose SQ SCH (21:00)
[2018-04-22] VITALS (21 sets, daily range): BP systolic 101–168; BP diastolic 63–98
[2018-04-22] MEDS ORDERED: amiodarone 150mg/dext, iso-os 100 ML IV ONE ×2 (00:55→00:56)
[2018-04-22] MEDS: amiodarone/D5 360MG/200ML BAG 200 ML IV SCH ×4 (01:15→16:52)
[2018-04-22 01:39] LABS: BASOPHILS % (AUTO) 0.5 % (0-1); EOSINOPHILS # (AUTO) 0.2 X10'3 (0-0.9); EOSINOPHILS % (AUTO) 2.4 % (0-6); HEMATOCRIT 31.7 % (42.0-52.0); HEMOGLOBIN 11.3 g/dl (14.0-17.9); LYMPHOCYTES # (AUTO) 1.4 X10'3 (1.1-4.8); LYMPHOCYTES % (AUTO) 18.7 % (21-51); MEAN CORPUSCULAR HEMOGLOBIN 31.4 PG (27.0-31.0); MEAN CORPUSCULAR HGB CONC 35.7 % (33.0-36.5); MEAN PLATELET VOLUME 8.8 FL (7.4-10.4); MONOCYTES # (AUTO) 0.5 X10'3 (0-0.9); MONOCYTES % (AUTO) 6.8 % (2-12); NEUTROPHILS # (AUTO) 5.5 X10'3 (1.8-7.7); NEUTROPHILS % (AUTO) 71.6 % (42-75); PLATELET COUNT 154 X10'3 (140-440); RED CELL DISTRIBUTION WIDTH 12.5 % (11.5-14.5); WHITE BLOOD COUNT 7.6 X10'3 (4.5-11.0)
[2018-04-22 01:42] LABS: ALBUMIN 2.7 G/DL (3.4-5.0); ANION GAP 6 (8-16); BLOOD UREA NITROGEN 21 MG/DL (7-18); BUN/CREATININE RATIO 22.8 (5.4-32.0); CALCIUM 8.6 MG/DL (8.5-10.1); CHLORIDE 101 MMOL/L (99-107); CREATININE 0.92 MG/DL (0.60-1.10); GLUCOSE 134 MG/DL (70-104); MAGNESIUM 2.3 MG/DL (1.5-2.4); PHOSPHORUS 3.7 MG/DL (2.3-4.5); SODIUM 136 MMOL/L (135-145); TOTAL CARBON DIOXIDE 28.6 MMOL/L (24-32); eGFR 81 ML/MIN
[2018-04-22] MEDS ORDERED: potassium Cl 20 mEq SR tablet PO PRN ×4 (02:40→10:05)
[2018-04-22] MEDS: HYDROcodone/acetaminophen 10/325mg tab PO PRN ×3 (06:16→16:26)
[2018-04-22] MEDS: pantoprazole 40mg Tablet.DR PO SCH (07:23)
[2018-04-22] MEDS: levoTHYROXINE 25mcg tablet PO SCH (07:23)
[2018-04-22] MEDS: metoprolol tartrate 12.5mg (1/2 tablet) PO SCH ×2 (07:23→19:51)
[2018-04-22] MEDS: tamsulosin 0.4mg capsule PO SCH (07:23)
[2018-04-22] MEDS: lactobacillus rhamnosus 10,000 MMU CELLS/CAPSULE PO SCH ×2 (07:24→19:51)
[2018-04-22] MEDS: lisinopril 5mg tablet PO SCH (07:24)
[2018-04-22] MEDS: atorvastatin 10mg tablet PO SCH (07:24)
[2018-04-22] MEDS: aspirin 325mg tablet, delayed-release (Ecotrin) PO SCH (07:24)
[2018-04-22] MEDS: docusate sod 100mg capsule PO SCH ×2 (07:24→19:51)
[2018-04-22] MEDS: K and/or MAG REPLACEMENT MC SCH (10:05)
[2018-04-22] MEDS ORDERED: potassium Cl 40MEQ/NS 500ml 500 ML IV PRN ×2 (10:05)
[2018-04-22] MEDS ORDERED: magnesium Cl slow-release 64mg tablet PO PRN (10:05)
[2018-04-22] MEDS ORDERED: magnesium 1gm/100ml D5W IVPB 100 ML IV PRN (10:05)
[2018-04-22] MEDS ORDERED: magnesium 4gm in 100ml NS 100 ML IV PRN (10:05)
[2018-04-22] MEDS: sodium chloride 0.45% 1,000 ML IV SCH (10:47)
[2018-04-22] MEDS: potassium Cl 20 mEq SR tablet PO SCH (11:08)
[2018-04-22] MEDS: morphine 4 MG/ML inj SYRINge IV PRN (18:55)
[2018-04-22] MEDS: insulin glargine (Lantus) pen - multi-dose SQ SCH (19:51)
[2018-04-22] MEDS: magnesium Cl slow-release 64mg tablet PO SCH (19:51)
[2018-04-23] VITALS (24 sets, daily range): BP systolic 102–158; BP diastolic 68–98
[2018-04-23] MEDS: amiodarone/D5 360MG/200ML BAG 200 ML IV SCH ×2 (01:11→04:27)
[2018-04-23] MEDS: HYDROcodone/acetaminophen 10/325mg tab PO PRN ×2 (04:27→20:33)
[2018-04-23 06:45] LABS: MAGNESIUM 2.2 MG/DL (1.5-2.4); PHOSPHORUS 4.1 MG/DL (2.3-4.5); POTASSIUM 4.5 MMOL/L (3.5-5.1)
[2018-04-23] MEDS: K and/or MAG REPLACEMENT MC SCH (07:31)
[2018-04-23] MEDS: magnesium Cl slow-release 64mg tablet PO SCH ×2 (07:38→20:35)
[2018-04-23] MEDS: docusate sod 100mg capsule PO SCH ×2 (07:47→20:32)
[2018-04-23] MEDS: tamsulosin 0.4mg capsule PO SCH (07:47)
[2018-04-23] MEDS: aspirin 325mg tablet, delayed-release (Ecotrin) PO SCH (07:47)
[2018-04-23] MEDS: levoTHYROXINE 25mcg tablet PO SCH (07:47)
[2018-04-23] MEDS: atorvastatin 10mg tablet PO SCH (07:47)
[2018-04-23] MEDS: lactobacillus rhamnosus 10,000 MMU CELLS/CAPSULE PO SCH ×2 (07:47→20:32)
[2018-04-23] MEDS: lisinopril 5mg tablet PO SCH (07:47)
[2018-04-23] MEDS: metoprolol tartrate 12.5mg (1/2 tablet) PO SCH (07:48)
[2018-04-23] MEDS: pantoprazole 40mg Tablet.DR PO SCH (07:48)
[2018-04-23] MEDS: potassium Cl 20 mEq SR tablet PO SCH ×2 (07:51→20:33)
[2018-04-23] MEDS: rivaroxaban 20mg tablet PO SCH (09:34)
[2018-04-23] MEDS: diltiazem CD 180mg cap (once-daily) PO SCH (09:34)
[2018-04-23] MEDS ORDERED: magnesium citrate 296ml oral solution PO ONE (14:35)
[2018-04-23] MEDS: metoprolol tartrate 25mg tablet PO SCH (20:32)
[2018-04-23] MEDS: insulin glargine (Lantus) pen - multi-dose SQ SCH (21:00)
[2018-04-24] VITALS (21 sets, daily range): BP systolic 92–168; BP diastolic 64–95
[2018-04-24 06:03] LABS: MAGNESIUM 2.4 MG/DL (1.5-2.4); PHOSPHORUS 4.5 MG/DL (2.3-4.5); POTASSIUM 4.6 MMOL/L (3.5-5.1)
[2018-04-24] MEDS: pantoprazole 40mg Tablet.DR PO SCH (07:26)
[2018-04-24] MEDS: levoTHYROXINE 25mcg tablet PO SCH (07:26)
[2018-04-24] MEDS: atorvastatin 10mg tablet PO SCH (07:26)
[2018-04-24] MEDS: metoprolol tartrate 25mg tablet PO SCH ×2 (07:26→19:17)
[2018-04-24] MEDS: lisinopril 5mg tablet PO SCH (07:26)
[2018-04-24] MEDS: docusate sod 100mg capsule PO SCH ×2 (07:26→19:18)
[2018-04-24] MEDS: lactobacillus rhamnosus 10,000 MMU CELLS/CAPSULE PO SCH ×2 (07:27→19:17)
[2018-04-24] MEDS: tamsulosin 0.4mg capsule PO SCH (07:27)
[2018-04-24] MEDS: potassium Cl 20 mEq SR tablet PO SCH ×2 (07:27→19:18)
[2018-04-24] MEDS: rivaroxaban 20mg tablet PO SCH (07:27)
[2018-04-24] MEDS: aspirin 325mg tablet, delayed-release (Ecotrin) PO SCH (07:27)
[2018-04-24] MEDS: diltiazem CD 180mg cap (once-daily) PO SCH (07:27)
[2018-04-24] MEDS: magnesium Cl slow-release 64mg tablet PO SCH ×2 (07:27→19:18)
[2018-04-24] MEDS: K and/or MAG REPLACEMENT MC SCH (07:28)
[2018-04-24] MEDS: sodium chloride 0.45% 1,000 ML IV SCH (07:41)
[2018-04-24] MEDS: diltiazem SR 60mg capsule (twice daily) PO SCH (19:17)
[2018-04-24] MEDS: insulin glargine (Lantus) pen - multi-dose SQ SCH (19:18)
[2018-04-25] VITALS (14 sets, daily range): BP systolic 123–162; BP diastolic 68–88
[2018-04-25 05:32] LABS: MAGNESIUM 2.3 MG/DL (1.5-2.4); PHOSPHORUS 4.2 MG/DL (2.3-4.5); POTASSIUM 4.3 MMOL/L (3.5-5.1)
[2018-04-25] MEDS: K and/or MAG REPLACEMENT MC SCH (07:32)
[2018-04-25] MEDS: levoTHYROXINE 25mcg tablet PO SCH (07:38)
[2018-04-25] MEDS: diltiazem SR 60mg capsule (twice daily) PO SCH (07:38)
[2018-04-25] MEDS: metoprolol tartrate 25mg tablet PO SCH (07:38)
[2018-04-25] MEDS: rivaroxaban 20mg tablet PO SCH (07:39)
[2018-04-25] MEDS: atorvastatin 10mg tablet PO SCH (07:39)
[2018-04-25] MEDS: lisinopril 5mg tablet PO SCH (07:39)
[2018-04-25] MEDS: lactobacillus rhamnosus 10,000 MMU CELLS/CAPSULE PO SCH (07:39)
[2018-04-25] MEDS: docusate sod 100mg capsule PO SCH (07:39)
[2018-04-25] MEDS: pantoprazole 40mg Tablet.DR PO SCH (07:39)
[2018-04-25] MEDS: tamsulosin 0.4mg capsule PO SCH (07:39)
[2018-04-25] MEDS: magnesium Cl slow-release 64mg tablet PO SCH (07:40)
[2018-04-25] MEDS: potassium Cl 20 mEq SR tablet PO SCH (07:40)
[2018-04-25] MEDS ORDERED: aspirin 81mg tablet.DR PO SCH (08:00)
[2018-04-27] MEDS ORDERED: lactose-reduced food (Ensure High Protein) 237ml bottle PO SCH (17:00)
== END 2018-04-25 16:41 | DRG 234 ==
LOC: SSTAY O 09:37 → PCU 3S 17:56 → CICU 2S 04-18 10:09
PROVIDERS: ADMIT Thoracic Surgery (Cardiothoracic Vascular Surgery); ATTEND Thoracic Surgery (Cardiothoracic Vascular Surgery)
PROC: 4A023N7 Measurement of Cardiac Sampling and Pressure, Left Heart, Percutaneous Approach (ICD-10-PCS; principal; 2018-04-16)
PROC: B2111ZZ Fluoroscopy of Multiple Coronary Arteries using Low Osmolar Contrast (ICD-10-PCS; 2018-04-16)
PROC: B2151ZZ Fluoroscopy of Left Heart using Low Osmolar Contrast (ICD-10-PCS; 2018-04-16)
PROC: 02100Z9 Bypass Coronary Artery, One Artery from Left Internal Mammary, Open Approach (ICD-10-PCS; 2018-04-18)
PROC: 021009W Bypass Coronary Artery, One Artery from Aorta with Autologous Venous Tissue, Open Approach (ICD-10-PCS; 2018-04-18)
PROC: 06BP4ZZ Excision of Right Saphenous Vein, Percutaneous Endoscopic Approach (ICD-10-PCS; 2018-04-18)
PROC: B24BZZ4 Ultrasonography of Heart with Aorta, Transesophageal (ICD-10-PCS; 2018-04-18)
PROC: 02L70CK Occlusion of Left Atrial Appendage with Extraluminal Device, Open Approach (ICD-10-PCS; 2018-04-18)
PROC: 5A2204Z Restoration of Cardiac Rhythm, Single (ICD-10-PCS; 2018-04-18)
PROC: 05HM33Z Insertion of Infusion Device into Right Internal Jugular Vein, Percutaneous Approach (ICD-10-PCS; 2018-04-18)
DX: I25.119 Atherosclerotic heart disease of native coronary artery with unspecified angina pectoris (principal); E44.1 Mild protein-calorie malnutrition; E03.9 Hypothyroidism, unspecified; E78.5 Hyperlipidemia, unspecified; R33.9 Retention of urine, unspecified; I48.2 Chronic atrial fibrillation; I48.0 Paroxysmal atrial fibrillation; E66.9 Obesity, unspecified; G47.33 Obstructive sleep apnea (adult) (pediatric); I10 Essential (primary) hypertension; Z79.899 Other long term (current) drug therapy; Z79.01 Long term (current) use of anticoagulants; Z79.82 Long term (current) use of aspirin; Z86.73 Personal history of transient ischemic attack (TIA), and cerebral infarction without residual deficits; Z68.33 Body mass index [BMI] 33.0-33.9, adult
CPT/HCPCS: 0232T; 93312; 93325; 93458; 36415; 36600; 71045; 71046; 74018; 80048; 80053; 80061; 82330; 82435; 82803; 82947; 82948; 83036; 83735; 84100; 84132; 84295; 84443; 85018; 85025; 85027; 85347; 85384; 85610; 85730; 86885; 86900; 86901; 86920; 87070; 93005; 93308; 93880; 93971; 94002; 94010; 97116; 97162; 97164; 97530; 99152; 99153; A4620; A6255; A6257; A6258; A6402; A6446; A6449; A7000; A7048; C1751; C1769; C1894; C9113; G0378; J0282; J0690; J1265; J1644; J1815; J1885; J2060; J2250; J2270; J2405; J2440; J2704; J3010; J3370; J3475; J3480; J3490; J7030; J7120; P9045; Q0163; Q9967